=== PATIENT | male | born 1950 | race Caucasian/White ===

== ENCOUNTER 2020-01-08 08:39 | Day surgery (SDC) | payer OTHER, SELFPAY ==
[2020-01-01 09:46] LABS: CALCIUM 8.7 mg/dL (8.5-10.1); CARBON DIOXIDE 29.6 mmol/L (21-32); CHLORIDE SERUM 107 mmol/L (98-107); CREATININE SERUM 0.8 mg/dL (0.7-1.3); GLUCOSE SERUM 98 mg/dL (74-106); POTASSIUM SERUM 4.3 mmol/L (3.5-5.1); SODIUM SERUM 144 mmol/L (136-145)
[2020-01-01 10:24] LABS: BASOPHIL % 0.5 % (0-2); PLATELET COUNT 177 x10^3mcL (130-400); RED CELL DISTRIBUTION WIDTH 12.7 % (11.5-14.5)
[~2020-01-08] VITALS: Ht 170.2 cm; Wt 74.8 kg
[2020-01-08 09:46] VITALS: BP 156/98
--- NOTE | 2020-01-08 09:56 | NUR ---
DR. PERRY, ANESTHESIOLOGIST WAS AWARE OF ABNORMAL EKG RESULT. NO FURTHER ORDER NEEDED AT THIS TIME PER DOCTOR.
[2020-01-08 13:58] VITALS: BP 152/85
== END 2020-01-08 13:55 | disposition home or self-care (01) ==
LOC: OR 08:39
PROVIDERS: ATTEND Surgery
DX: K40.90 Unilateral inguinal hernia, without obstruction or gangrene, not specified as recurrent (principal); Z11.59 Encounter for screening for other viral diseases
CPT/HCPCS: C1781; J0690; J2175; J2250; J3010; J3490; Q0092; U0003-CS